=== PATIENT | female | born 1955 | race Caucasian/White ===

== ENCOUNTER → 2024-07-24 | Outpatient (CLI) | payer OTHER, SELFPAY ==
[2024-07-24 12:06] LABS: Collection Type, Urine Clean Catch
[2024-07-24 12:28] LABS: Bilirubin,Urine Negative (Negative); Blood,Urine Negative (Negative); Clarity,Urine Clear (Clear/Hazy); Color,Urine Yellow (Lt Yel-Yel); Culture Indicated,Urine Not Indicated; Glucose, Urine Negative (Negative); Ketones,Urine Negative (Negative); Leukocyte Esterase,Urine Negative (Negative); Nitrite,Urine Negative (Negative); PH,Urine 6.5 (5.0-7.0); Protein,Urine 3+ (Neg - Trace); RBC,Urine 3 /hpf (0-3); Specific Gravity,Urine 1.016 (1.001-1.035); Squamous Epithelial Cell,Urine 2 /hpf (0-5); Urobilinogen,Urine Negative mg/dL (0.0-1.0); WBC,Urine 1 /hpf (0-5)
[2024-07-24 12:35] LABS: Anion Gap 4 (7-16); BUN/Creatinine Ratio 14 Ratio (12-20); Blood Urea Nitrogen 13 mg/dL (9-23); Chloride 104 mMol/L (98-107); Creatinine (Component) 0.9 mg/dL (0.6-1.3); Potassium 4.7 mMol/L (3.4-5.1); Sodium 137 mMol/L (136-145)
[2024-07-24 12:36] LABS: Calcium 8.7 mg/dL (8.3-10.6); Glucose 81 mg/dL (74-106); Osmolality,Calculated 272 (275-295); eGFR > 60 See Note
== END | disposition home or self-care (01) ==
PROVIDERS: PCP Family Medicine; Referring Provider Registered Nurse; Visit Provider Registered Nurse
DX: R31.9 Hematuria, unspecified (principal); R80.9 Proteinuria, unspecified
CPT/HCPCS: 36415; 80048; 81001

== ENCOUNTER → 2024-07-30 | Outpatient (CLI) | payer OTHER, SELFPAY ==
--- NOTE | 2024-07-30 16:00 | XR_ITS ---
Examination: Retroperitoneal ultrasound, complete Technique: Multiple high resolution grayscale images of the retroperitoneum obtained, including kidneys and bladder. Exam date and time:July 30, 2024 1551 hours INDICATIONS: Proteinuria hematuria on laboratory examination one week ago FINDINGS: Right kidney 9.6 x 6.1 x 5.2 cm renal cortex 1.7 cm Left kidney 9.7 x 5.1 x 4.6 cm renal cortex 1.4 cm Moderate renal parenchymal scar formation 8mm upper pole left renal cyst Mild right hydronephrosis No bladder mass or bladder calculi Bladder prevoid volume 235 cc postvoid volume 19 cc IMPRESSION: Moderate bilateral renal parenchymal scar formation Mild left hydronephrosis, consider CT scan abdomen pelvis without contrast follow-up to assess etiology of the hydronephrosis
--- NOTE | 2024-07-30 17:00 | XR_ITS ---
Examination: Ultrasound soft tissue anterior abdomen TECHNIQUE: Multiple high resolution grayscale sonographic images soft tissue anterior abdomen inferior to the umbilicus Exam date and time: July 30, 2024 1614 hours INDICATIONS: Palpable lump infraumbilical with warmth redness and fever 6 days, diagnosis of vulvar cancer lumpectomy lymphectomy 2021 FINDINGS: No cystic or solid mass noted IMPRESSION: No cystic or solid mass noted Given the patient's presentation, consider CT scan abdomen pelvis post intravenous contrast follow-up
== END | disposition home or self-care (01) ==
LOC: CDIM 15:33
PROVIDERS: Referring Provider Registered Nurse; Visit Provider Registered Nurse
DX: N13.30 Unspecified hydronephrosis (principal); N28.89 Other specified disorders of kidney and ureter
CPT/HCPCS: 76705; 76770

== ENCOUNTER → 2024-10-04 | Outpatient (CLI) | payer OTHER, SELFPAY ==
[2024-10-04 16:03] LABS: Misc Send Out* See Sep Rpt
[2024-10-04 16:30] LABS: Basophils % (Auto) 1 % (0-2.5); Eosinophils # (Auto) 0.1 Thou/mm3 (0.0-0.5); Eosinophils % (Auto) 2 % (0-10); Hematocrit 40.3 % (36.0-46.0); Hemoglobin 13.1 g/dL (12.0-16.0); Immature Granulocytes % (Auto) 1 % (0-0); Immature Granulocytes Auto 0.03 Thou/mm3 (0.00-0.00); Lymphocytes # (Auto) 0.9 Thou/mm3 (1.0-4.8); Lymphocytes % (Auto) 17 % (10-50); Mean Corpuscular HGB Conc 32.5 g/dl (31.0-37.0); Mean Corpuscular Hemoglobin 30.5 pg (25.0-35.0); Mean Corpuscular Volume 94 fL (80-100); Monocytes # (Auto) 0.4 Thou/mm3 (0.0-0.8); Monocytes % (Auto) 7 % (0-12); Neutrophils # (Auto) 3.7 Thou/mm3 (1.8-7.7); Neutrophils % (Auto) 72 % (37-80); Nucleated Red Blood Cell % 0 /100 WBC (0); Platelet Count 235 Thou/mm3 (140-440); RDW Standard Deviation 46.3 fL (36.4-46.3); White Blood Count 5.1 Thou/mm3 (3.6-11.0)
[2024-10-04 16:42] LABS: Alanine Aminotransferase 14 U/L (10-49); Albumin, Serum 3.6 gm/dL (3.4-4.8); Albumin/Globulin Ratio 1.6 (1.2-2.2); Alkaline Phosphatase 96 U/L (46-116); Anion Gap 4 (7-16); Aspartate Amino Transferase 11 U/L (0-34); BUN/Creatinine Ratio 17 Ratio (12-20); Bilirubin,Total 0.3 mg/dL (0.3-1.2); Blood Urea Nitrogen 17 mg/dL (9-23); Calcium 8.5 mg/dL (8.3-10.6); Calcium (Corrected) 8.8 mg/dL (8.5-10.1); Carbon Dioxide 28.9 mMol/L (20.0-31.0); Chloride 105 mMol/L (98-107); Globulin 2.2 gm/dL (2.3-3.5); Glucose 97 mg/dL (74-106); Osmolality,Calculated 277 (275-295); Potassium 4.6 mMol/L (3.4-5.1); Sodium 138 mMol/L (136-145); Total Protein 5.8 gm/dL (5.7-8.2); eGFR > 60 See Note
== END | disposition home or self-care (01) ==
LOC: COPL 15:44
PROVIDERS: PCP Physician Assistant; Referring Provider Physician Assistant; Visit Provider Physician Assistant
DX: R50.9 Fever, unspecified (principal); R22.9 Localized swelling, mass and lump, unspecified; N13.30 Unspecified hydronephrosis; L30.9 Dermatitis, unspecified; L03.90 Cellulitis, unspecified; Z85.44 Personal history of malignant neoplasm of other female genital organs; R79.9 Abnormal finding of blood chemistry, unspecified; R68.89 Other general symptoms and signs; D82.4 Hyperimmunoglobulin E [IgE] syndrome
CPT/HCPCS: 36415; 80053; 82785; 85025

== ENCOUNTER → 2024-10-07 | Outpatient (CLI) | payer OTHER, SELFPAY ==
--- NOTE | 2024-10-07 08:37 | XR_ITS ---
Examination: CT abdomen, without intravenous contrast. CT pelvis, without intravenous contrast. CT abdomen, with intravenous contrast. CT pelvis, with intravenous contrast. 2-D sagittal coronal reconstructions. Date and time of exam:October 07, 2024 0904 hours Comparison PET/CT scan March 07, 2024 INDICATIONS: Lower abdominal pain and swelling beginning 5 days ago, diagnoses vulvar carcinoma 2021 CTDI: vol (mGy) 17.5 DLP: (mGycm) 868 Technique: Multiple 3.0 axial images of the abdomen and pelvis without intravenous contrast, 3.0 mm slice thickness. Multiple 3.0 postcontrast images abdomen and pelvis also obtained, post intravenous injection 60 cc [id number] 2-D sagittal and coronal reconstructions. Low dose protocols were performed. One or more of the following dose reduction techniques were used; automated exposure control, adjustment of the mA and/or KV according to patient size, use of iterative reconstruction technique. Findings: No focal liver or splenic lesions No gallstones No pancreatic mass Mild nodular thickening left adrenal gland Moderate renal parenchymal scar formation, no hydronephrosis Abdominal aortic calcification No bowel obstruction Normal appendix Scattered colonic diverticulosis, no diverticulitis Absent uterus No pelvic mass Contracted urinary bladder Advanced degenerative disc disease L5-S1 IMPRESSION: Negative for hydronephrosis Moderate bilateral renal parenchymal scar formation
== END | disposition home or self-care (01) ==
PROVIDERS: PCP Physician Assistant; Referring Provider Physician Assistant; Visit Provider Physician Assistant
DX: N28.89 Other specified disorders of kidney and ureter (principal)
CPT/HCPCS: 74178; A4649; Q9967

== ENCOUNTER 2024-10-25 12:49 | Outpatient (RCR) | payer OTHER, SELFPAY ==
--- NOTE | 2024-10-28 00:58 | CTCFLWUP_ITS ---
Patient: CRIS LEAL : 1955 Page 4 of 5 FOLLOW UP NOTE DATE OF SERVICE: 10/25/2024 NAME: CRIS LEAL ACCOUNT: [id number] : 1955 AGE: 69 INTERVAL HISTORY: Doing well with no new complaint. 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 Leal is a 69-year-old female with following oncology history. 06/28/2022: Ms. Leal had a lesion biopsied from the right labia of the vulva. 08/17/2022: Ms. Leal had partial radical vulvectomy, sentinel lymph node mapping, bilateral inguinal femoral lymph node dissection 03/10/2023: Ms. Leal had a biopsy from the recurrent lesion on the vulva 05/15/2023 - 07/24/2023: The patient was treated with chemoradiation using cisplatin as radiosensitizing agent. Ms. Leal received a total of 7000 cGy radiation therapy 09/24/2023: PET/CT scan? 10/18/2023: MRI of the pelvis with and without contrast 03/07/2024: PET/CT scan? OTHER MEDICAL HISTORY/CONDITIONS: denies hystrectomy c section sinus 2011 laporectomy ?Clone Other Med Hx? FAMILY HISTORY: Father:?lung Mother:?gleoblastoma ?Clone Family Hx? 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 MEDICATIONS: 1. chlorthalidone - 25 mg 1 tab Daily 2. losartan - 100 mg 1 tab Daily 3. losartan - 25 mg 1 tab Daily 4. metoprolol succinate - 100 mg 1 tab Daily 5. [place] - 10-325 mg 0.5 tab Every 6 Hours?[place]ra Meds? Medications Last Reconciled by An Medina MD on 10/25/2024 ALLERGIES: levofloxacin; Latex, Natural Rubber; erythromycin; SOME METALS REVIEW OF SYSTEMS: A complete 14-point review of systems was performed and is negative except as noted in interval history. PHYSICAL EXAMINATION: VITAL SIGNS: Temperature?98.9, B/P?227/76, Oxygen?Saturation?96% Weight?168?lbs PAIN: 0 - No pain ECOG Performance Status: 0 - Asymptomatic and fully active GENERAL APPEARANCE: Appears well, in no apparent distress, appropriately interactive. HEENT: Normocephalic, no temporal wasting, normal conjunctiva, no scleral icterus, normal hearing, lips without lesions, neck normal range of motion. CARDIOVASCULAR: Not assessed. PULMONARY: Normal respiratory effort, no respiratory distress or use of accessory muscles, speaking in full sentences, no tachypnea. EXTREMITIES: No pedal edema or cyanosis. SKIN: Normal skin appearance. NEUROLOGIC: Alert and oriented x4. PSHYCHIATRIC: Appropriate affect, mood normal, behavior normal, intact thought and speech. LABORATORY DATA: I have personally reviewed and interpreted each of the patient?s relevant lab tests, abnormal findings are below: Date 10/04/24 ??GLUCOSE,RANDOM?(mg/dL) 97 ??BLOOD?UREA?NITROGEN?(mg/dL) 17 ??CREATININE?(mg/dL) 1.00 ??SODIUM?(mmol/L) 138 ??POTASSIUM?(mmol/L) 4.6 ??CHLORIDE?(mmol/L) 105 ??CrCl?(CandG)?(ml/min) 51.56 ??AST/SGOT?(Unit/L) 11 ??ALT/SGPT?(Unit/L) 14 ??ALKALINE?PHOSPHATASE?(Unit/L) 96 ??BILIRUBIN,?TOTAL?(mg/dL) 0.3 ??PROTEIN?TOTAL?(gm/dl) 5.8 ??ALBUMIN,?SERUM?(gm/dl) 3.6 ??GLOBULIN?(gm/dl) 2.2?L ??ALBUMIN/GLOBULIN?RATIO 1.6 ??CALCIUM,?SERUM?(mg/dL) 8.5 ??CALCIUM?SERUM?(CORRECTED)?(mg/dL) 8.8 ASSESSMENT/PLAN: 1. The patient is clinically doing well without any complaints. 2. Ms. Leal continues to smoke 1 pack/day 3. PET/CT scan done on 03/07/2024 is essentially negative study.. 4. Status post chemoradiation completed on 07/24/2023. 5. She has recovered very well from chemoradiation. 6. 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 This invasive squamous cell carcinoma, moderately differentiated, 4.7 cm in greatest dimension. Status post partial radical vulvectomy, sentinel lymph node mapping and bilateral inguinofemoral lymph node dissection (08/17/2022 Advised to follow-up with the well drill operator helper cable tool CBC and CMP today or tomorrow RETURN TO CLINIC: 6 months BILLING AND COMPLIANCE: I reviewed external records from providers outside my specialty as summarized above. I spent a total of 50 minutes on this patient?s care on the day of their visit excluding time spent related to any billed procedures. This time includes time spent with the patient as well as time spent documenting in the medical record, reviewing patients records and tests, obtaining history, placing orders, communicating with other healthcare professionals, counseling the patient, family or caregiver, and/or care coordination for the diagnoses above. Electronically Signed by: Amilcar Payne MD T: 12:56 AM CC: Harvey?Truman? PCP: Amilcar Payne Referring: Amilcar Payne This document was completed utilizing speech recognition software. Grammatical errors, random word insertions, pronoun errors, and incomplete sentences are an occasional consequence of this system due to software limitations, ambient noise, and hardware issues. Any formal questions or concerns about the content, text or information contained within the body of this dictation should be directly addressed to the provider for clarification.
== END 2024-10-25 23:59 | disposition home or self-care (01) ==
LOC: SCTC 12:49
PROVIDERS: PCP Family Medicine; Referring Provider Internal Medicine Hematology & Oncology; Visit Provider Internal Medicine Hematology & Oncology
DX: C51.9 Malignant neoplasm of vulva, unspecified (principal); F17.210 Nicotine dependence, cigarettes, uncomplicated; Z92.21 Personal history of antineoplastic chemotherapy; Z92.3 Personal history of irradiation; Z90.79 Acquired absence of other genital organ(s)
CPT/HCPCS: 99212; G0463

== ENCOUNTER → 2024-12-17 | Outpatient (CLI) | payer OTHER, SELFPAY ==
[2024-12-17 17:33] LABS: Blood Urea Nitrogen 19 mg/dL (9-23); Creatinine (Component) 1.2 mg/dL (0.6-1.3); eGFR 49 See Note
== END | disposition home or self-care (01) ==
LOC: COPL 16:37
PROVIDERS: PCP Family Medicine; Referring Provider Student in an Organized Health Care Education/Training Program; Visit Provider Student in an Organized Health Care Education/Training Program
DX: C51.9 Malignant neoplasm of vulva, unspecified (principal)
CPT/HCPCS: 36415; 82565; 84520

== ENCOUNTER → 2025-07-02 | Outpatient (CLI) | payer BC, SELFPAY ==
--- NOTE | 2025-07-02 09:50 | XR_ITS ---
Examination: Lumbar spine, 5 views Technique: Lumbar spine AP, lateral, coned lateral lower lumbar spine, bilateral obliques 5 views Exam date and time: July 02, 2025, 1009 hours, comparison 05/22/2024 INDICATIONS: Lower back pain and hip pain beginning 4 years ago FINDINGS: Lumbar levoscoliosis 25 degrees Prominent osteopenia Diffuse moderate to advanced facet arthropathy Diffuse moderate to advanced lumbar degenerative disc disease No spondylolisthesis No lumbar fracture IMPRESSION: Diffuse moderate to advanced lumbar degenerative disc disease with spinal stenosis
== END | disposition home or self-care (01) ==
LOC: CDIM 09:36
PROVIDERS: PCP Family Medicine; Referring Provider Physical Medicine & Rehabilitation Pain Medicine; Visit Provider Physical Medicine & Rehabilitation Pain Medicine
DX: M51.360 Other intervertebral disc degeneration, lumbar region with discogenic back pain only (principal); M48.061 Spinal stenosis, lumbar region without neurogenic claudication
CPT/HCPCS: 72110

== ENCOUNTER → 2025-07-26 | Outpatient (CLI) | payer BC, SELFPAY ==
[2025-07-23 13:51] LABS: Basophils # (Auto) 0.0 Thou/mm3 (0.0-0.2); Basophils % (Auto) 1 % (0-2.5); Eosinophils # (Auto) 0.1 Thou/mm3 (0.0-0.5); Eosinophils % (Auto) 2 % (0-10); Hematocrit 40.9 % (36.0-46.0); Hemoglobin 13.3 g/dL (12.0-16.0); Immature Granulocytes Auto 0.04 Thou/mm3 (0.00-0.00); Lymphocytes # (Auto) 1.0 Thou/mm3 (1.0-4.8); Lymphocytes % (Auto) 12 % (10-50); Mean Corpuscular HGB Conc 32.5 g/dl (31.0-37.0); Mean Corpuscular Hemoglobin 31.1 pg (25.0-35.0); Mean Corpuscular Volume 96 fL (80-100); Monocytes # (Auto) 0.6 Thou/mm3 (0.0-0.8); Monocytes % (Auto) 7 % (0-12); Neutrophils # (Auto) 6.1 Thou/mm3 (1.8-7.7); Neutrophils % (Auto) 78 % (37-80); Nucleated Red Blood Cell # 0.00 Thou/mm3 (0.00-0.00); Nucleated Red Blood Cell % 0 /100 WBC (0); Platelet Count 238 Thou/mm3 (140-440); RDW Standard Deviation 44.6 fL (36.4-46.3); Red Blood Count 4.27 Miln/mm3 (4.00-5.20); White Blood Count 7.9 Thou/mm3 (3.6-11.0)
[2025-07-23 13:57] LABS: Alanine Aminotransferase 11 U/L (10-49); Albumin, Serum 4.4 gm/dL (3.4-4.8); Albumin/Globulin Ratio 1.8 (1.2-2.2); Alkaline Phosphatase 91 U/L (46-116); Anion Gap 7 (7-16); Aspartate Amino Transferase 17 U/L (0-34); BUN/Creatinine Ratio 21 Ratio (12-20); Bilirubin,Total 0.4 mg/dL (0.3-1.2); Blood Urea Nitrogen 25 mg/dL (9-23); Calcium 9.2 mg/dL (8.3-10.6); Calcium (Corrected) 9.2 mg/dL (8.5-10.1); Carbon Dioxide 28.8 mMol/L (20.0-31.0); Chloride 104 mMol/L (98-107); Creatinine (Component) 1.2 mg/dL (0.6-1.3); Globulin 2.5 gm/dL (2.3-3.5); Glucose 103 mg/dL (74-106); Osmolality,Calculated 283 (275-295); Potassium 4.9 mMol/L (3.4-5.1); Sodium 140 mMol/L (136-145); Total Protein 6.9 gm/dL (5.7-8.2); eGFR 49 See Note
--- NOTE | 2025-07-26 14:45 | XR_ITS ---
Examination: MRI abdomen with intravenous contrast. MRI abdomen without intravenous contrast. 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 Transverse images, TR 6020, TE 107. T1 weighted transverse images, TR 582, TE 9.5. T2-weighted sagittal images, TR 4000, TE 105. T2-weighted sagittal images, TR 4000, TE 5. Coronal images, TR 4210, TE 107. Axial and coronal images are obtained post 19 cc intravenous injection, gadolinium. Findings: No focal liver or splenic lesion Mild intrahepatic biliary tract dilatation No definite gallstones Common hepatic duct 6 mm No pancreatic mass No dilated pancreatic duct No ascites Moderate renal scar formation, no hydronephrosis Prominent lumbar levoscoliosis Homogeneous marrow signal No abdominal lymphadenopathy IMPRESSION: No focal liver or splenic lesions Negative for ascites No abdominal lymphadenopathy No abnormal enhancing liver splenic or renal lesions
--- NOTE | 2025-07-26 15:45 | XR_ITS ---
Examination: MRI pelvis with intravenous contrast. MRI pelvis without intravenous contrast. Date and time of exam: July 26, 2025, 1456 hours, comparison MRI pelvis October 18, 2023, PET/CT scan September 21, 2023 INDICATIONS: Diagnosis malignant neoplasm of vulva 2021 post radiation therapy pelvic pain slow urination Technique: Multiple axial, sagittal and coronal sections of the pelvis obtained. Transverse images, TR 6020, TE 107. T1 weighted transverse images, TR 582, TE 9.5. T2-weighted sagittal images, TR 4000, TE 105. T2-weighted sagittal images, TR 4000, TE 5. Coronal images, TR 4210, TE 107. Axial and coronal images are obtained post 19 cc intravenous injection, gadolinium. Findings: No common iliac external iliac internal iliac or common femoral lymphadenopathy Absent uterus No pelvic mass No free fluid in the pelvis Normal marrow signal bones of the pelvis and hips Nonobstructive bowel gas pattern Post contrast images demonstrate mild enhancement in the perineal region, 28 x 51 mm IMPRESSION: Mild enhancement in the perineal region 28 x 51 mm, sagittal postcontrast image 21, which may represent scar formation Recommend repeat MRI pelvis pre and post contrast in 3 months with specific attention to this region
== END | disposition home or self-care (01) ==
LOC: SMRI 13:19
PROVIDERS: PCP Family Medicine; Referring Provider Internal Medicine Hematology & Oncology; Visit Provider Internal Medicine Hematology & Oncology
DX: R10.20 Pelvic and perineal pain unspecified side (principal); D45 Polycythemia vera; C51.9 Malignant neoplasm of vulva, unspecified
CPT/HCPCS: 36415; 72197; 74183; 80053; 85025; A9577